=== PATIENT | male | born 1945 | race Caucasian/White ===

== ENCOUNTER 2021-08-13 10:21 | Inpatient (IN) | payer OTHER ==
[~2021-08-13] VITALS: Ht 175.3 cm; Wt 72.3 kg
[2021-08-13 10:57] LABS: BASOPHILS ABSOLUTE AUTO 0.05 K/mm3 (0.00-0.23); BASOPHILS PERCENT AUTO 0 % (0-2); EOSINOPHILS ABSOLUTE AUTO 0.06 K/mm3 (0.00-0.68); EOSINOPHILS PERCENT AUTO 1 % (0-6); Hematocrit 35.5 % (37.0-53.0); Hemoglobin 12.2 g/dL (13.5-17.5); IMMATURE GRAN ABSOLUTE AUTO 0.05 K/mm3 (0.00-0.10); IMMATURE GRAN PERCENT AUTO 0 % (0-1); LYMPHOCYTES PERCENT AUTO 27 % (21-46); MONOCYTES PERCENT AUTO 7 % (4-13); Mean Corpuscular HGB Conc 34.4 g/dL (31.5-36.5); Mean Corpuscular Volume 102 fL (80-100); Mean Platelet Volume 11.8 fL (9.1-12.4); NEUTROPHILS ABSOLUTE AUTO 8.22 K/mm3 (1.96-9.15); NEUTROPHILS PERCENT AUTO 65 % (41-73); Platelet Count 304 K/mm3 (150-400); RDW Coefficient Variation 13.7 % (11.7-14.2); RDW Standard Deviation 51.7 fL (35.1-46.3); Red Blood Cell Count 3.49 M/mm3 (4.30-5.90); White Blood Cell Count 12.68 K/mm3 (4.00-11.30)
[2021-08-13 11:13] LABS: Alanine Aminotransfer (ALT/SGP 41 U/L (12-78); Albumin, Blood 2.2 g/dL (3.4-5.0); Albumin/Globulin Ratio 0.6 (0.8-1.8); Alk Phos 107 U/L (50-136); Anion Gap 12 mmol/L (6-16); Aspartate Aminotrans (AST/SGOT 51 U/L (12-37); Bilirubin, Total 1.1 mg/dL (0.1-1.0); Blood Urea Nitrogen 12 mg/dL (8-24); Bun/Creatinine Ratio 14.1 (12.0-20.0); CO2, Blood 27 mmol/L (21-32); Calcium, Blood 8.7 mg/dL (8.5-10.1); Chloride, Blood 103 mmol/L (98-108); Creatinine, Blood 0.85 mg/dL (0.60-1.20); Glomerular Filtration Rate >60 (60-); Glucose, Blood 225 mg/dL (70-99); Magnesium, Blood 1.4 mg/dL (1.6-2.4); Potassium, Blood 3.4 mmol/L (3.5-5.5); Sodium, Blood 142 mmol/L (136-145); Total Protein, Blood 6.2 g/dL (6.4-8.2)
[2021-08-13 14:18] LABS: Source, Urine Clean Catch
[2021-08-13 14:21] LABS: Appearance, Urine Clear (Clear); Blood, Urine Neg (Neg); Color, Urine Amber (P-Yellow); Glucose Qualitative, Urine Neg (Neg); Ketones, Urine 1+ (Neg); Leukocyte Esterase, Urine 1+ (Neg); Nitrite, Urine Neg (Neg); Protein, Urine 2+ (Neg); Urobilinogen, Urine 3+ (Normal)
[2021-08-13 14:28] LABS: Bilirubin, Urine 1+ (Neg)
[2021-08-13 14:29] LABS: Bacteria Few /hpf; Mucus Light (0-Heavy); Red Blood Cells, Urine 0-2 /hpf (0-2); Squamous Epithelial Cells Rare /hpf (Few)
[2021-08-13] MEDS ORDERED: VENL75ER PO (15:52)
[2021-08-13] MEDS ORDERED: ZOCOR20 MG PO (15:53)
[2021-08-13 21:44] LABS: Source, Urine Catheter
[2021-08-13 21:47] LABS: Appearance, Urine Clear (Clear); Bilirubin, Urine Neg (Neg); Blood, Urine Neg (Neg); Color, Urine Yellow (P-Yellow); Glucose Qualitative, Urine Neg (Neg); Ketones, Urine Neg (Neg); Leukocyte Esterase, Urine Neg (Neg); Nitrite, Urine Neg (Neg); Protein, Urine Neg (Neg); Specific Gravity, Urine 1.005 (1.003-1.022); Urobilinogen, Urine 1+ (Normal)
--- NOTE | 2021-08-14 04:42 | NUR ---
SHIFT SUMMARY: PATIENT A&O X3. RESTED T/O SHIFT, DENIES SLEEPING. USES CALL LIGHT APPROPRIATELY. PLEASANT AND COOPERATIVE WITH CARE. HAND TREMORS PRESENT, PATIENT STATES ABNORMAL. IMPLEMENTED CIWA PROTOCOL WITH CIWA OF 4. PATIENT DENIED ALCOHOL USE ON ADMITTANCE TO UNIT, BUT ED NOTES DOCUMENT PATIENT DRINKS SCOTCH DAILY AND DRINKING HAS INCREASED SINCE IN THE LAST YEAR. PATIENT STATED LAST DRINK OF SCOTCH WAS "MORE THAN A WEEK AGO" WHEN ASKED ABOUT HIS DRINKING BY THIS RN. ULCER ON SACRAL AREA HAS FOUL ODOR WITH PEELING SKIN - PHOTOS IN CHART. PATIENT STATES THE SKIN IS NOT JUST SKIN AND ALSO INCLUDES "PART OF MY LEATHER CHAIR." WHEN ASKED HOW PART OF CHAIR ATTACHED TO HIS SKIN HE SAID, "IT ROTTED THERE." NO ADVERSE EVENTS THIS SHIFT. WILL REPORT TO ONCOMING RN.
[2021-08-14 04:45] LABS: BASOPHILS ABSOLUTE AUTO 0.03 K/mm3 (0.00-0.23); BASOPHILS PERCENT AUTO 0 % (0-2); EOSINOPHILS ABSOLUTE AUTO 0.11 K/mm3 (0.00-0.68); EOSINOPHILS PERCENT AUTO 1 % (0-6); Hematocrit 29.3 % (37.0-53.0); Hemoglobin 10.1 g/dL (13.5-17.5); IMMATURE GRAN ABSOLUTE AUTO 0.05 K/mm3 (0.00-0.10); IMMATURE GRAN PERCENT AUTO 1 % (0-1); LYMPHOCYTES ABSOLUTE AUTO 2.87 K/mm3 (0.84-5.20); LYMPHOCYTES PERCENT AUTO 36 % (21-46); MONOCYTES ABSOLUTE AUTO 0.86 K/mm3 (0.16-1.47); MONOCYTES PERCENT AUTO 11 % (4-13); Mean Corpuscular HGB 34.6 pg (26.0-34.0); Mean Corpuscular HGB Conc 34.5 g/dL (31.5-36.5); Mean Corpuscular Volume 100 fL (80-100); NEUTROPHILS ABSOLUTE AUTO 4.08 K/mm3 (1.96-9.15); NEUTROPHILS PERCENT AUTO 51 % (41-73); Platelet Count 150 K/mm3 (150-400); RDW Coefficient Variation 13.9 % (11.7-14.2); Red Blood Cell Count 2.92 M/mm3 (4.30-5.90)
[2021-08-14 05:02] LABS: International Normalized Ratio 1.01; Prothrombin Time Results 10.6 Sec (9.7-11.5)
[2021-08-14 05:04] LABS: Alanine Aminotransfer (ALT/SGP 34 U/L (12-78); Albumin, Blood 1.8 g/dL (3.4-5.0); Albumin/Globulin Ratio 0.5 (0.8-1.8); Alk Phos 82 U/L (50-136); Anion Gap 6 mmol/L (6-16); Aspartate Aminotrans (AST/SGOT 27 U/L (12-37); Bilirubin, Total 0.5 mg/dL (0.1-1.0); Blood Urea Nitrogen 8 mg/dL (8-24); Bun/Creatinine Ratio 9.4 (12.0-20.0); CO2, Blood 26 mmol/L (21-32); Calcium, Blood 7.9 mg/dL (8.5-10.1); Chloride, Blood 113 mmol/L (98-108); Creatinine, Blood 0.85 mg/dL (0.60-1.20); Globulin, Blood 3.8 g/dL (2.2-4.0); Glomerular Filtration Rate >60 (60-); Glucose, Blood 90 mg/dL (70-99); Magnesium, Blood 1.7 mg/dL (1.6-2.4); Potassium, Blood 2.5 mmol/L (3.5-5.5); Sodium, Blood 145 mmol/L (136-145); Total Protein, Blood 5.6 g/dL (6.4-8.2)
--- NOTE | 2021-08-14 06:02 | NUR ---
LOW POTASSIUM: ATTEMPTED TO CALL PROVIDER AT 0603 R/T POTASSIUM OF 2.5.
--- NOTE | 2021-08-14 11:19 | NUR ---
Spiritual Care patient referral. Pt. was alert and in sitting up in bed. Pt. goes by "Lucas". Pt.welcomed me to visit. Pt. quickly referenced the recent passing of his (November 2020). Provided Grief support. Facilitated a life review. Pt. displayed evidence of interest and engagement. Pt. gave an update on his physical condition, and was grateful for the care he has received. Pt. verbalized encouragement, and invited me to return. Prayed with pt. I will monitor.
--- NOTE | 2021-08-14 13:49 | NUR ---
PATIENT ALERT AND ORIENTED X3. SOME CONFUSING STATEMENTS AT TIME. TIMELINE OF EVENTS IS NOT ACCURATE. DENIES NUMBNESS/TINGLING. ABLE TO TURN AND MOVE SELF IN BED. TIRES EASILY. UP WITH OT THIS AM. USING WALKER WHEN AMBULATING. COMPLAINS OF PAIN TO LATERAL SIDE OF LEFT FOOT. STATES PAIN IS IMPROVING. MOST PAIN LOCATED ON COCCYX. LARGE COCCYX WOUND WITH PHOTO IN CHART. DR. LOPEZ IN THIS AM TO ASSESS. NO NEED FOR SRGERY AT THIS TIME. WOUND CLEANING AND OFF LOADING. WOUND CLEANSER AND CREAM APPLIED. CLEAN ATTENDS IN PLACE. SKIN DARK AND DRY. SLOUGHING OFF. ON ROOM AIR, LUNGS SOUNDING CLEAR. TELE SHOWING SINUS RHYTHM WITH HR 80'S. BP STABLE. DENIES ABDOMINAL PAIN/NAUSEA. STATES HE DRINKS SCOTCH EVERY NIGHT BUT HAS NOT DRANK FOR OVER A WEEK. SOME SMALL TREMORS IN HANDS. DENIES FEELING ANY WITHDRAWL SYMPTOMS. USING URINAL IN BED. TOLERATIN PO DIET AND DRINKING FLUIDS. NS RUNNING AT 200 ML/HR. ANTIBIOTICS AND POTASSIUM INFUSED. CALL LIGHT IN REACH. WILL CONTINUE TO MONITOR.
--- NOTE | 2021-08-14 17:55 | NUR ---
SHIFT SUMMARY: NO ACUTE CHANGES. CHANGING AND CLEANING WOUND NEEDED. OFF LOADING COCCYX WITH PILLOWS. PATIENT ABLE TO TURN SELF IN BED. NO CHANGES IN TELE. REMAINS ON ROOM AIR. DENIES PAIN. DENIES ABDOMINAL PAIN/NAUSEA. VITAL SIGNS REMAIN STABLE. AT THIS TIME POTASSIUM AND ZOSYN INFUSING. MAG REPLACED. USING URINAL IN BED. WILL CONITNUE TO MONITOR AND REPORT OFF. CALL LIGHT IN REACH.
--- NOTE | 2021-08-15 04:48 | NUR ---
SHIFT SUMMARY: VS STABLE, NO COMPLAINTS OF CHEST PAIN OR SOB. DENIES HEADACHE, NAUSEA, TACTILE OR VISUAL DISTURBANCES. DEMONSTRATES GOOD APPETITE. PATIENT HAD MULTIPLE EPISODES OF LOOSE STOOLS THIS SHIFT LIKELY R/T ANTIBIOTIC TX. USES CALL LIGHT APPROPRIATELY, PLEASANT AND COOPERATIVE WITH CARE. ABLE TO ASSIST WITH REPOSITIONING AND LIKES SIDES TO BE FLOATED ON PILLOWS TO RELIEVE COCCYX PAIN. COCCYX WOUNDS IMPROVED FROM YESTERDAY AND PATIENT REPORTS "IT FEELS A LOT BETTER." PATIENT SLEPT PERIODICALLY T/O SHIFT, BUT MOSTLY WATCHED TV. WILL CONTINUE TO MONITOR AND REPORT TO DAY RN.
[2021-08-15 05:40] LABS: Anion Gap 8 mmol/L (6-16); Blood Urea Nitrogen 10 mg/dL (8-24); Bun/Creatinine Ratio 12.7 (12.0-20.0); CO2, Blood 23 mmol/L (21-32); Calcium, Blood 7.9 mg/dL (8.5-10.1); Chloride, Blood 112 mmol/L (98-108); Creatinine, Blood 0.79 mg/dL (0.60-1.20); Glomerular Filtration Rate >60 (60-); Glucose, Blood 88 mg/dL (70-99); Sodium, Blood 143 mmol/L (136-145)
--- NOTE | 2021-08-15 10:00 | NUR ---
PATIENT ALERT AND ORIENTED X4. NEURO WNL. DENIES NUMBNESS/TINGLING. ABLE TO MOVE ALL EXTREMITIES. UP WITH 1 PERSON ASSIST AND FRONT WHEEL WALKER. ABLE TO TURN SELF IN BED. ON ROOM AIR LUNGS SOUNDING CLEAR. TELE SHOWING SINUS RHYTHM WITH HR 80'S. DENIES CHEST PAIN/PRESSURE. VITAL SIGNS STABLE. DENIES ABDOMINAL PAIN/NAUSEA. WOUND CARE THIS AM TO COCCYX AREA. CLEANED, POWDER AND CREAM APPLIED. IMPROVING FROM YESTERDAY DAY SHIFT. PATIENT USING URINAL IN BED. EDUCATION ON WOUND/SKIN CARE AND GENERAL HYGIENE. CALL LIGHT IN REACH. EATING AND DRINKING WELL. WILL CONTINUE TO MONITOR. SLEEPING AT THIS TIME.
--- NOTE | 2021-08-15 17:39 | NUR ---
SHIFT SUMMARY: NO ACUTE CHANGES. SEE PREVIOUS NOTE. REMAINS ON ROOM AIR AND IN SINUS RHYTHM. VITAL SIGNS STABLE. DENIES ABDOMINAL PAIN/NAUSEA. WORKED WITH BOTH PT AND OT TODAY. UP TO BATHROOM WITH 1 PERSON ASSIST AND FRONT WHEEL WALKER. USING URINAL. WOUND CARE DONE THIS AM AND REPEATED NEEDED WITH BOWEL MOVEMENTS. WOUND IMPROVEMENT FROM YESTERDAY DAY SHIFT. PLAN FOR PATIENT TO DISCHARGE TO [facility]. UP SITTING AT EDGE OF BED AT THIS TIME EATING DINNER. DR. BLAKE CALLED, UPDATED, AND NEW ORDERS FOR PO POTASSIUM PLACED. DENIES NEEDS AT THIS TIME. CALL LIGHT IN REACH. TALKING WITH FRIENDS/FAMILY ON PHONE THROUGHOUT THE DAY. WILL CONITNUE TO MONITOR AND REPORT OFF.
[2021-08-16 05:58] LABS: Anion Gap 5 mmol/L (6-16); Blood Urea Nitrogen 13 mg/dL (8-24); Bun/Creatinine Ratio 15.3 (12.0-20.0); CO2, Blood 24 mmol/L (21-32); Calcium, Blood 8.2 mg/dL (8.5-10.1); Chloride, Blood 112 mmol/L (98-108); Creatinine, Blood 0.85 mg/dL (0.60-1.20); Glomerular Filtration Rate >60 (60-); Glucose, Blood 119 mg/dL (70-99); Magnesium, Blood 1.5 mg/dL (1.6-2.4); Potassium, Blood 3.3 mmol/L (3.5-5.5); Sodium, Blood 141 mmol/L (136-145)
--- NOTE | 2021-08-16 06:10 | NUR ---
SHIFT SUMMARY: PATIENT A&O X4, STABLE VSS, NSR, AND ASKING WHEN HE CAN D/C. PATIENT AMBULATES TO TOILET FOR BMS WITH ASSISTANCE AND USES URINAL AT BEDSIDE. PLEASANT AND COOPERATIVE WITH CARE. COCCYX WOUND IS NO LONGER SLOUGHING. CIWAS 0 THIS SHIFT. NO ADVERSE EVENTS THIS SHIFT, WILL CONTINUE TO MONITOR AND REPORT TO DAY RN.
--- NOTE | 2021-08-16 12:10 | NUR ---
UPDATE SPOKE WITH PHYSICIAN REGARDING MAG SULFATE DUE AT 1157. SINCE PT RECEIVED 2 GRAMS THIS AM PHYSICIAN ORDERED TO D/C THIS DOSE.
[2021-08-16] MEDS ORDERED: Promod946 ML PO (12:17)
[2021-08-16] MEDS ORDERED: CEPH500 PO (12:17)
[2021-08-16] MEDS ORDERED: VISBIOME 112.51 EACH PO (12:18)
[2021-08-16] MEDS ORDERED: POTCHL20ER PO (12:20)
--- NOTE | 2021-08-16 18:20 | NUR ---
SHIFT SUMMARY PT ALERT AND ORIENTED X 4. HR STABLE. BP STABLE. NO CP OR PRESSURE. OXYGEN SATURATION MAINTAINED ABOVE 92% ON RA. PT SBA. ABLE TO TURN SELF IN BED. PT HAD INCONTINENT BM THIS AM. SHOWERED AND CLEANED. WOUND ON COCCYX IS OPEN TO AIR AT THIS TIME. NO DRAINAGE NOTED. PLAN FOR PT TO D/C TO SNF ONCE BED AVAILABLE. WILL CONT TO MONITOR UNTIL REPORT GIVEN TO NIGHTSHIFT RN.
--- NOTE | 2021-08-17 05:25 | NUR ---
SHIFT SUMMARY PT ALERT AND ORIENTED X4. PLEASANT AND COOPERATIVE TO CARE. HR AND BP STABLE. PT DENIES CP. SATS OVER 97% ON RA, LUNG SOUNDS CLEAR. VOIDS INDEPENDENTLY WITH BEDSIDE URINAL. MEPILEX IN PLACE ON SACRUM. NO COMPLAINTS OF PAIN OR DISCOMFORT. PT IN BED WATCHING TV WITH CALL ALARM AT SIDE. WILL CONTINUE TO MONITOR UNTIL REPORT GIVEN
[2021-08-17 08:56] LABS: Anion Gap 7 mmol/L (6-16); Blood Urea Nitrogen 12 mg/dL (8-24); Bun/Creatinine Ratio 17.4 (12.0-20.0); CO2, Blood 24 mmol/L (21-32); Calcium, Blood 9.1 mg/dL (8.5-10.1); Chloride, Blood 109 mmol/L (98-108); Creatinine, Blood 0.69 mg/dL (0.60-1.20); Glomerular Filtration Rate >60 (60-); Glucose, Blood 84 mg/dL (70-99); Potassium, Blood 4.2 mmol/L (3.5-5.5); Sodium, Blood 140 mmol/L (136-145)
--- NOTE | 2021-08-17 17:33 | NUR ---
SHIFT SUMMARY PT ALERT AND ORIENTED X 4. HR STABLE. BP STABLE. OXYGEN SATURATION MAINTAINED ABOVE 95% ON RA. PT ABLE TO TURN SELF IN BED. PT SBA. WOUND ON COCCYX HAS MEPLEX IN PLACE. DRESSING C/D/I. PT WAITING ON BED PLACEMENT FOR SNF. NO BEDS AVAILABLE TODAY.NO CP OR PRESSURE REPORTED. WILL CONT TO MONITOR UNTIL REPORT GIVEN TO NIGHTSHIFT RN.
[2021-08-18 04:20] LABS: Anion Gap 6 mmol/L (6-16); Blood Urea Nitrogen 19 mg/dL (8-24); Bun/Creatinine Ratio 23.9 (12.0-20.0); CO2, Blood 25 mmol/L (21-32); Calcium, Blood 9.3 mg/dL (8.5-10.1); Chloride, Blood 106 mmol/L (98-108); Glomerular Filtration Rate >60 (60-); Glucose, Blood 89 mg/dL (70-99); Potassium, Blood 4.7 mmol/L (3.5-5.5); Sodium, Blood 137 mmol/L (136-145)
--- NOTE | 2021-08-18 05:12 | NUR ---
SHIT SUMMARY PT ALERT AND ORIENTED X4. VSS. ON RA MAINTAINING SATS OVER 98%. MEPILEX IN PLACE OVER SACRUM. PATIENT VOIDS AND TURNS INDEPENDENTLY. IN BED SLEEPING MOST OF NIGHT. CALL ALARM AT SIDE. WILL CONTINUE TO MONITOR UNTIL REPORT GIVEN
--- NOTE | 2021-08-18 17:21 | NUR ---
SHIFT SUMMARY PT ALERT AND ORIENTED X 4. HR STABLE. BP STABLE. OXYGEN SATURATION MAINTAINED ABOVE 92% ON RA. PT ABLE TO TURN SELF IN BED. INCONTINENT AT TIMES OF URINE AND STOOL. DEPENDS IN PLACE. NO BED AVAILABLE FOR PLACEMENT FOR DISCHARGE.NO CP OR PRESSURE REPORTED. WILL CONT TO MONITOR UNTIL REPORT GIVEN TO NIGHTSHIFT RN.
--- NOTE | 2021-08-19 05:32 | NUR ---
SHIFT SUMMARY NO ACUTE EVENTS THIS SHIFT. PT ALERT AND ORIENTED X4. BP STABLE. SATS OVER 98% ON RA. NO C/O PAIN OR DISCOMFORT. INCONTINENT OF STOOL. VOIDS INDEPENDENTLY. IN BED SLEEPING WITH CALL ALARM AT SIDE
--- NOTE | 2021-08-19 17:28 | NUR ---
SHIFT SUMMARY PT IS ALERT AND ORIENTED X 4 BUT HAS NOT USED HIS CALL LIGHT DURING SHIFT. HE ANSWERS QUESTIONS APPROPRIATELY BUT WHEN ENCOURAGED TO USE CALL LIGHT TO HAVE BM HE WILL WAIT UNTIL STAFF ROUNDS IN ROOM TO LET THEM KNOW HE HAS HAD A BM. VITAL SIGNS HAVE REMAINED STABLE T/O SHIFT AND HE HAS DENIED PAIN. SPO2 >90% VIA ROOM AIR. IV IN LEFT FOREARM IS SALINE LOCKED. PHYSICAL THERAPY EVALUATION TODAY 08/19, PT IS A SBA WITH WALKER AND GAIT BELT. HE USES BEDSIDE URINAL TO VOID. WOUND ON COCCYX APPEARS RED WITH EXCORIATION IN CHEEK FOLDS. MEPILEX DRESSING IN PLACE. BRIEFS ARE DRY/CLEAN. NO OTHER ACUTE CHANGES NOTED. WILL CONTINUE TO MONITOR UNTIL REPORT GIVEN.
--- NOTE | 2021-08-20 05:48 | NUR ---
SHIFT SUMMARY PATIENT ALERT AND ORIENTED X4 T/O SHIFT. HAS FLAT AFFECT BUT ANSWERS QUESTIONS APPROPRIATELY. VSS. REMAINS ON RA WITH O2 SAT ABOVE 90%. PATIENT SLEPT FOR MOST OF THE NIGHT. USING URINAL AT BEDSIDE INDEPENDENTLY. MEPILEX IN PLACE ON COCCYX. PATIENT DID NOT USE CALL LIGHT T/O NIGHT BUT COMMUNICATED NEEDS DURING ROUNDING WITH STAFF. NO OTHER SIGNIFICANT CHANGES TO PATIENT'S STATUS. WILL REPORT TO DAY SHIFT RN.
--- NOTE | 2021-08-20 12:03 | NUR ---
Spiritual care visit. Pt. was alert and just getting comfortable in bed. Staff brought his lunch right when I arroved. Restabished rapport with pt. Pt. is pretty independant and doesn't seem to have much outside support. Pt. is very motivated to push his physical Therapy. Pt. demonstrated distress over "over-doing" it. Pt. also mildly distressed about the wait for a bed in a facility where he can continue his rehab. Normalized sitiuation, inquired about any further spiritual concerns. Pt. welcomed pastoral prayer. I will contue to monitor for any additional signs of distress. Prayed with pt.
--- NOTE | 2021-08-20 12:03 | NUR ---
Pt this morning was alert, oriented x 3. He was responsive appropriately in conversation. When it was time for medications, he asked if he could be cleaned up because his attends was wet, he said. He had been voiding small amounts in the urinal while lying in bed. He was found to be soiled with both urine and brown stool. Emma care and attends change was done, pt was assisted to chair for medications and to work with the physical therapist who was here at the time. Soiled Alevyn dressing was removed and noted sacral ulcer. Wound photo documentation updated. PT spoke with the pt about calling staff if he has toileting needs or incontinence. The pt asked, "what, are someone going to stay here with me all of the time?" PT was educated that staff are always here, and available to assist him.
--- NOTE | 2021-08-20 13:02 | NUR ---
Sacral wounds were cleansed, photographed and dressed with Alevyn dressing to protect the wound from shearing and from urine and stool incontinence.
--- NOTE | 2021-08-21 04:08 | NUR ---
SHIFT SUMMARY ADMITTED FOR CELLULITIS. FULL CODE. WAS LIVING ALONE, NOW PLAN IS FOR PLACEMENT TO [facility]. DR. DIXON IS CONSULTED FOR GENERAL SURGERY. PRESSURE ULCER ON LEFT BUTTOCK. HE IS A STANDBY ASSIST. HE CAN BE INCONTINENT OF BM AND URINE AT TIMES. HE IS A [facility]. HE IS COOPERATIVE WITH CARE. PHYSICAL & OCCUPATIONAL THERAPIES ASSISTING W/THIS PT. NO NEW CONCERNS THIS SHIFT.
--- NOTE | 2021-08-21 12:35 | NUR ---
Reviewed discharge plan with the patient. Pt will be discarged to [facility] after covid testing results. Telephone report was called to the facility at this time.
[2021-08-21 12:43] LABS: Influenza A, PCR NEGATIVE (NEGATIVE); Influenza B, PCR NEGATIVE (NEGATIVE); Resp Syncytial Virus, PCR NEGATIVE (NEGATIVE); SARS-Cov-2 (COVID-19) PCR, MMC NEGATIVE (NEGATIVE)
--- NOTE | 2021-08-21 12:48 | NUR ---
noted covid test is negative. Copy of the report was placed in the packet of pt information to be taken with pt to [facility].
== END 2021-08-21 12:55 | DRG 871 ==
LOC: ER 10:21 → ERHOLD 14:39 → SURS 14:39 → PCU 08-15 07:56
PROVIDERS: Internal Medicine; Nurse Practitioner Acute Care; Student in an Organized Health Care Education/Training Program; ADMIT Internal Medicine
DX: A41.9 Sepsis, unspecified organism (principal); R65.21 Severe sepsis with septic shock; E87.2 Acidosis; L03.317 Cellulitis of buttock; F17.210 Nicotine dependence, cigarettes, uncomplicated; Z23 Encounter for immunization; E87.6 Hypokalemia; Z20.822 Contact with and (suspected) exposure to COVID-19; L89.322 Pressure ulcer of left buttock, stage 2; L89.312 Pressure ulcer of right buttock, stage 2; E86.0 Dehydration; L89.151 Pressure ulcer of sacral region, stage 1; E83.42 Hypomagnesemia; M79.672 Pain in left foot; F10.20 Alcohol dependence, uncomplicated
CPT/HCPCS: 0241U; 36415; 71046; 72193; 73630; 80048; 80053; 81001; 81003; 82550; 83036; 83605; 83735; 83880; 84145; 84484; 85025; 85610; 87040; 87086; 90686; 93005; 93010; 96365; 96366; 96368; 97110; 97116; 97162; 97166; 97530; 97535; 99285-25; A9270; J1650; J2543; J3475; J3480; J7030; Q9967

== ENCOUNTER 2021-10-03 10:31 | Emergency (ER) | payer OTHER, MEDICARE ==
[~2021-10-03] VITALS: Ht 172.7 cm; Wt 72.6 kg
[~2021-10-03 10:31] MED LIST: CEPH500 PO; POTCHL20ER PO; Promod946 ML PO; VENL75ER PO; VISBIOME 112.51 EACH PO; ZOCOR20 MG PO
[2021-10-03 12:11] LABS: BASOPHILS ABSOLUTE AUTO 0.02 K/mm3 (0.00-0.23); BASOPHILS PERCENT AUTO 0 % (0-2); EOSINOPHILS ABSOLUTE AUTO 0.02 K/mm3 (0.00-0.68); EOSINOPHILS PERCENT AUTO 0 % (0-6); Hematocrit 47.7 % (37.0-53.0); IMMATURE GRAN ABSOLUTE AUTO 0.04 K/mm3 (0.00-0.10); IMMATURE GRAN PERCENT AUTO 0 % (0-1); LYMPHOCYTES PERCENT AUTO 14 % (21-46); MONOCYTES ABSOLUTE AUTO 1.29 K/mm3 (0.16-1.47); MONOCYTES PERCENT AUTO 9 % (4-13); Mean Corpuscular HGB 36.4 pg (26.0-34.0); Mean Corpuscular HGB Conc 33.5 g/dL (31.5-36.5); Mean Corpuscular Volume 109 fL (80-100); Mean Platelet Volume 11.8 fL (9.1-12.4); NEUTROPHILS ABSOLUTE AUTO 10.48 K/mm3 (1.96-9.15); NEUTROPHILS PERCENT AUTO 76 % (41-73); Platelet Count 193 K/mm3 (150-400); RDW Coefficient Variation 18.5 % (11.7-14.2); RDW Standard Deviation 70.1 fL (35.1-46.3); Red Blood Cell Count 4.39 M/mm3 (4.30-5.90); White Blood Cell Count 13.85 K/mm3 (4.00-11.30)
[2021-10-03 13:16] LABS: Alanine Aminotransfer (ALT/SGP 39 U/L (12-78); Albumin, Blood 3.1 g/dL (3.4-5.0); Albumin/Globulin Ratio 0.8 (0.8-1.8); Alk Phos 104 U/L (50-136); Anion Gap 14 mmol/L (6-16); Aspartate Aminotrans (AST/SGOT 20 U/L (12-37); Bilirubin, Total 0.4 mg/dL (0.1-1.0); Blood Urea Nitrogen 11 mg/dL (8-24); Bun/Creatinine Ratio 11.5 (12.0-20.0); CO2, Blood 23 mmol/L (21-32); Calcium, Blood 9.5 mg/dL (8.5-10.1); Chloride, Blood 105 mmol/L (98-108); Creatinine, Blood 0.96 mg/dL (0.60-1.20); Glomerular Filtration Rate >60 (60-); Glucose, Blood 113 mg/dL (70-99); Potassium, Blood 3.6 mmol/L (3.5-5.5); Sodium, Blood 142 mmol/L (136-145); Total Protein, Blood 7.1 g/dL (6.4-8.2)
[2021-10-03] MEDS ORDERED: MUPIROCIN1 G1 TOP (13:29)
[2021-10-03] MEDS ORDERED: Norco 5-325 Ta1 EACH PO (13:30)
== END 2021-10-03 14:45 | disposition home or self-care (01) ==
LOC: ER 10:31
PROVIDERS: Emergency Medicine
DX: T20.27XA Burn of second degree of neck, initial encounter (principal); T20.23XA Burn of second degree of chin, initial encounter; T21.11XA Burn of first degree of chest wall, initial encounter; T31.11 Burns involving 10-19% of body surface with 10-19% third degree burns; F10.20 Alcohol dependence, uncomplicated; F17.210 Nicotine dependence, cigarettes, uncomplicated; Z23 Encounter for immunization; Z79.2 Long term (current) use of antibiotics; Z79.899 Other long term (current) drug therapy; X08.8XXA Exposure to other specified smoke, fire and flames, initial encounter; Y90.9 Presence of alcohol in blood, level not specified
CPT/HCPCS: 16030; 71045; 80053; 85025; 90471; 90714; 99284-25

== ENCOUNTER 2021-10-25 08:31 | Emergency (ER) | payer OTHER, MEDICARE ==
[~2021-10-25] VITALS: Ht 175.3 cm; Wt 71.7 kg
[~2021-10-25 08:31] MED LIST changes: +MUPIROCIN1 G1 TOP; +Norco 5-325 Ta1 EACH PO
== END 2021-10-25 12:30 | disposition home or self-care (01) ==
LOC: ER 08:31
DX: T20.27XD Burn of second degree of neck, subsequent encounter (principal); T79.2XXD Traumatic secondary and recurrent hemorrhage and seroma, subsequent encounter; I10 Essential (primary) hypertension; Z79.899 Other long term (current) drug therapy; F17.200 Nicotine dependence, unspecified, uncomplicated
CPT/HCPCS: 99282